=== PATIENT | male | born 1950 | race Caucasian/White ===

== ENCOUNTER 2017-08-16 23:51 | Inpatient (IN) | payer MEDICARE ==
[~2017-08-16] VITALS: Ht 177.8 cm; Wt 85.5 kg
[2017-08-17] MEDS ORDERED: normal saline 1000ML IV soln IV ONE (00:10)
[2017-08-17] MEDS ORDERED: ketorolac trometh. 30mg/ml inj. IV ONE (00:30)
[2017-08-17 00:50] LABS: PARTIAL THROMBOPLASTIN TIME 24 SECONDS (22-32); PROTHROMBIN TIME 9.9 SECONDS (9.0-12.0)
[2017-08-17 00:56] LABS: ALANINE AMINOTRANSFERASE 51 U/L (12-78); ALBUMIN 3.8 G/DL (3.4-5.0); ALKALINE PHOSPHATASE 83 IU/L (46-116); ANION GAP 12 (8-16); ASPARTATE AMINO TRANSFERASE 55 U/L (10-37); BILIRUBIN,TOTAL 1.5 MG/DL (0.1-1.0); BLOOD UREA NITROGEN 26 MG/DL (7-18); BUN/CREATININE RATIO 18.7 (5.4-32.0); CHLORIDE 105 MMOL/L (99-107); CREATININE 1.39 MG/DL (0.60-1.10); GLUCOSE 120 MG/DL (70-104); MAGNESIUM 1.6 MG/DL (1.5-2.4); POTASSIUM 4.6 MMOL/L (3.5-5.1); SODIUM 141 MMOL/L (135-145); TOTAL CARBON DIOXIDE 23.8 MMOL/L (24-32); TOTAL PROTEIN 7.5 G/DL (6.4-8.2); eGFR 51 ML/MIN
[2017-08-17 01:02] LABS: CLARITY,URINE CLEAR (Clear); COLOR,URINE YELLOW (Yellow); GLUCOSE, URINE NEGATIVE (Neg); KETONES,URINE NEGATIVE (Neg); LEUKOCYTE ESTERASE ,URINE TRACE (Neg); NITRITES, URINE NEGATIVE (Neg); OCCULT BLOOD,URINE NEGATIVE (Neg); PH,URINE 5.5 (4.8-8.0); PROTEIN,URINE NEGATIVE (Neg)
[2017-08-17 01:04] LABS: BASOPHILS # (AUTO) 0.2 X10'3 (0-0.2); BASOPHILS % (AUTO) 1.6 % (0-1); EOSINOPHILS % (AUTO) 0.2 % (0-6); HEMATOCRIT 34.4 % (42.0-52.0); HEMOGLOBIN 11.4 g/dl (14.0-17.9); LYMPHOCYTES # (AUTO) 0.4 X10'3 (1.1-4.8); MEAN CORPUSCULAR HEMOGLOBIN 30.3 PG (27.0-31.0); MEAN CORPUSCULAR HGB CONC 33.3 % (33.0-36.5); MEAN PLATELET VOLUME 8.6 FL (7.4-10.4); MONOCYTES # (AUTO) 0.6 X10'3 (0-0.9); MONOCYTES % (AUTO) 3.8 % (2-12); NEUTROPHILS # (AUTO) 13.5 X10'3 (1.8-7.7); NEUTROPHILS % (AUTO) 91.4 % (42-75); PLATELET COUNT 312 X10'3 (140-440); RED BLOOD COUNT 3.78 X10'6 (4.70-6.10); RED CELL DISTRIBUTION WIDTH 13.4 % (11.5-14.5); WHITE BLOOD COUNT 14.7 X10'3 (4.5-11.0)
[2017-08-17 01:10] LABS: UA COLLECTION TYPE CLN CATCH MIDSTREAM
[2017-08-17 01:18] LABS: BACTERIA,URINE NONE SEEN /HPF (Neg); RBC,URINE NONE SEEN /HPF (0-2); SQUAMOUS EPITHELIAL CELL,UR NONE SEEN /LPF (FEW); WBC,URINE 0-4 /HPF (0-4)
[2017-08-17 01:19] LABS: MUCUS STRANDS FEW /LPF (Neg); SPERM MANY /HPF (NEGATIVE)
[2017-08-17] MEDS ORDERED: CefTRIAXone 2gm/NS 100ml IVPB 100 ML IV STA (01:24)
[2017-08-17] MEDS ORDERED: potassium Cl 40MEQ/NS 500ml 500 ML IV PRN ×2 (01:35)
[2017-08-17] MEDS ORDERED: magnesium 4gm in 100ml NS 100 ML IV PRN (01:35)
[2017-08-17] MEDS ORDERED: magnesium hydroxide 30ml (MOM) UD suspension PO PRN (01:35)
[2017-08-17] MEDS ORDERED: mag hydrox/Alum hydrox/simeth 30ml oral suspension PO PRN (01:35)
[2017-08-17] MEDS ORDERED: magnesium 2GM in 50ml NS 50 ML IV PRN (01:35)
[2017-08-17] MEDS ORDERED: ipratropium/albuterol 3ml nebule NEB PRN (01:35)
[2017-08-17] MEDS ORDERED: potassium Cl 20 mEq SR tablet PO PRN ×2 (01:35)
[2017-08-17] MEDS ORDERED: ondansetron/PF 4mg/2ml inj IV PRN (01:35)
[2017-08-17] MEDS ORDERED: albuterol 2.5 MG/3 ML nebule NEB PRN (01:35)
[2017-08-17] MEDS ORDERED: acetaminophen 325mg tablet PO PRN (01:35)
[2017-08-17] MEDS ORDERED: HYDROcodone/acetaminophen 5mg/325mg tablet PO PRN (01:35)
[2017-08-17] MEDS ORDERED: magnesium Cl slow-release 64mg tablet PO PRN (01:35)
[2017-08-17] MEDS: normal saline 1000ml 1,000 ML IV SCH ×2 (01:57→10:56)
[2017-08-17] MEDS: HYDROcodone/acetaminophen 10/325mg tab PO PRN ×3 (02:04→20:14)
[2017-08-17 03:08] LABS: TOTAL CELLS COUNTED 100
[2017-08-17 03:09] LABS: PLATELET ESTIMATE NORMAL
[2017-08-17 03:10] LABS: LARGE PLATELETS FEW
[2017-08-17 04:15] VITALS: BP 101/62
[2017-08-17] MEDS ORDERED: K and/or MAG REPLACEMENT MC SCH (08:00)
[2017-08-17] MEDS ORDERED: oseltamivir phos 75mg capsule PO SCH (08:00)
[2017-08-17] MEDS ORDERED: CefTRIAXone 2gm/NS 100ml IVPB 100 ML IV SCH (08:00)
[2017-08-17] MEDS: heparin, porcine 5000 units/ml vial SQ SCH ×2 (08:47→20:13)
[2017-08-17] MEDS ORDERED: TOPI200T16 PO (09:46)
[2017-08-17] MEDS ORDERED: BENA10TA2 PO (09:46)
[2017-08-17] MEDS ORDERED: CITA20TA11 PO (09:46)
[2017-08-17] MEDS ORDERED: PRAM0.5T3 PO (09:46)
[2017-08-17] MEDS ORDERED: GEMF600T3 PO (09:46)
[2017-08-17] MEDS ORDERED: LORA1TAB PO (09:46)
[2017-08-17 10:00] VITALS: BP 100/62
[2017-08-17] MEDS ORDERED: lactobacillus rhamnosus 10,000 MMU CELLS/CAPSULE PO SCH (17:30)
[2017-08-17 18:00] VITALS: BP 106/65
[2017-08-17] MEDS ORDERED: temazepam 15mg capsule PO PRN (21:00)
[2017-08-17 22:18] VITALS: BP 119/74
[2017-08-18] MEDS ORDERED: dextrose ORAL solution 15 GM/59 ML bottle PO PRN ×2 (02:30)
[2017-08-18] MEDS ORDERED: dextrose 50%-water 50ml dispensing syringe IV PRN ×2 (02:30)
[2017-08-18] MEDS ORDERED: MESSAGE TO PHARMACY PO ONE (02:30)
[2017-08-18] MEDS ORDERED: glucagon, human recombinant 1mg kit SUBCUT PRN (02:30)
[2017-08-18] MEDS ORDERED: insulin Lispro (HumaLOG) vial - multi-dose SQ SCH (02:30)
[2017-08-18] MEDS ORDERED: FLU VACC QS2017-18 36MOS UP/PF 60 MCG/0.5 ML SYRINGE IMVAC ONE (10:00)
[2017-08-18] MEDS ORDERED: pneumococcal 23-VAL P-sac vacc 25 mcg/0.5ml vial IMVAC ONE (10:00)
[2017-08-18] MEDS ORDERED: LORazepam 1 MG tablet PO SCH (21:00)
[2017-08-18] MEDS ORDERED: topiramate 100mg tablet PO SCH (21:00)
[2017-08-18] MEDS ORDERED: pramipexole 1mg tablet PO SCH (21:00)
[2017-08-18] MEDS ORDERED: citalopram 20mg tablet PO SCH (21:00)
[2017-08-18] MEDS ORDERED: insulin glargine (Lantus) pen - multi-dose SQ SCH (21:00)
== END 2017-08-18 06:00 | disposition left against medical advice (07) | DRG 871 ==
LOC: ER 23:54 → ED HOLD 08-17 01:34 → ORTHO 4S 08-17 04:16
PROVIDERS: ADMIT Internal Medicine; ATTEND Internal Medicine
PROC: 3E0234Z Introduction of Serum, Toxoid and Vaccine into Muscle, Percutaneous Approach (ICD-10-PCS; principal; 2017-08-18)
DX: A41.9 Sepsis, unspecified organism (principal); G93.41 Metabolic encephalopathy; N17.9 Acute kidney failure, unspecified; D69.6 Thrombocytopenia, unspecified; E86.0 Dehydration; N39.0 Urinary tract infection, site not specified; D64.9 Anemia, unspecified; E78.5 Hyperlipidemia, unspecified; G25.81 Restless legs syndrome; I10 Essential (primary) hypertension; K27.9 Peptic ulcer, site unspecified, unspecified as acute or chronic, without hemorrhage or perforation; N40.0 Benign prostatic hyperplasia without lower urinary tract symptoms; M79.1 Myalgia; M25.50 Pain in unspecified joint; R74.0 Nonspecific elevation of levels of transaminase and lactic acid dehydrogenase [LDH]; F17.200 Nicotine dependence, unspecified, uncomplicated; Z79.899 Other long term (current) drug therapy; Z23 Encounter for immunization
CPT/HCPCS: 36415; 70450; 71045; 80053; 81001; 83605; 83735; 84145; 85025; 85610; 85730; 87040; 87070; 87088; 87502; 87503; 93005; 94760; 96361; 96374; 99285; J0696; J1644; J1815; J1885; J7030